=== PATIENT | female | born 1985 | race Caucasian/White ===

== ENCOUNTER 2017-08-31 11:19 | Emergency (ER) | payer MEDICAID, OTHER ==
[~2017-08-31] VITALS: Ht 154.9 cm; Wt 83.9 kg
[~2017-08-31 11:19] MED LIST: CEPH500C16 PO; PREN1CAP3 PO
[2017-08-31 11:32] VITALS: BP 109/72
--- NOTE | 2017-08-31 11:52 | NUR ---
32/F BIB SELF C/O EPIGASTRIC PAIN SINCE YESTERDAY; DENIES N/V/D; WORSE WITH EATING. SKIN IS PINK/WARM/DRY; AAOX4 WITH EVEN AND STEADY GAIT; LUNGS CLEAR BL; HR EVEN AND REGULAR; PT DENIES ANY FEVER, CP, SOB, OR COUGH AT THIS TIME; PATIENT STATES PAIN OF 9/10 AT THIS TIME.
--- NOTE | 2017-08-31 12:11 | NUR ---
Patient being evaluated by DR JOHNSON at bedside.
[2017-08-31] MEDS: FAMOTIDINE 20 MG TAB PO ONE (12:37)
[2017-08-31] MEDS: ALUMINUM HYD/MAG/SIMETHICONE 30 ML UDC PO ONE (12:37)
--- NOTE | 2017-08-31 13:04 | NUR ---
Patient discharged with v/s stable. Written and verbal after care instructions given and explained. Patient alert, oriented and verbalized understanding of instructions. Ambulatory with steady gait. All questions addressed prior to discharge. ID band removed. Patient advised to follow up with PMD. Rx of ZOFRAN & PEPCID given. Patient educated on indication of medication including possible reaction and side effects. Opportunity to ask questions provided and answered.
[2017-08-31 13:14] VITALS: BP 101/72
== END 2017-08-31 13:04 | disposition home or self-care (01) ==
LOC: MED 11:19
DX: K29.70 Gastritis, unspecified, without bleeding (principal); Z90.49 Acquired absence of other specified parts of digestive tract
CPT/HCPCS: 81002; 81025; 99283

== ENCOUNTER 2022-05-08 02:23 | Emergency (ER) | payer SELFPAY ==
[~2022-05-08] VITALS: Ht 154.9 cm; Wt 86.2 kg
[2022-05-08 02:31] VITALS: BP 121/80
[2022-05-08 02:43] VITALS: BP 121/80
--- NOTE | 2022-05-08 02:43 | NUR ---
Dr. Evans examining patient.
[2022-05-08] MEDS ORDERED: diphenhydrAMINE 50 MG/ML VIAL IVP ONE (03:00)
[2022-05-08] MEDS ORDERED: methylPREDNISolone SS 125 MG/2 ML VIAL IVP ONE (03:00)
[2022-05-08] MEDS ORDERED: FAMOTIDINE 20 MG/2 ML VIAL IVP ONE (03:00)
[2022-05-08] MEDS ORDERED: FAMOTIDINE 20 MG TAB PO ONE (03:05)
[2022-05-08] MEDS ORDERED: methylPREDNISolone SS 125 MG/2 ML VIAL IM ONE (03:05)
[2022-05-08] MEDS ORDERED: diphenhydrAMINE 50 MG/ML VIAL IM ONE (03:05)
[2022-05-08] MEDS ORDERED: EPIN1KIT32 IM (03:06)
[2022-05-08] MEDS ORDERED: FAMO-92 PO (03:06)
[2022-05-08] MEDS ORDERED: DIPH25TA53 PO (03:06)
[2022-05-08] MEDS ORDERED: PRED20TA5 PO (03:06)
--- NOTE | 2022-05-08 03:11 | NUR ---
22G IV CATH PLACED IN R AC
[2022-05-08 04:30] LABS: BASOPHILS # (AUTO) 0.1 K/uL (0.00-0.22); BASOPHILS % (AUTO) 0.6 % (0.0-2.0); EOSINOPHILS # (AUTO) 0.1 K/uL (0-0.4); EOSINOPHILS % (AUTO) 1.2 % (0.0-4.0); HEMOGLOBIN 11.9 g/dL (12.0-16.0); LYMPHOCYTES # (AUTO) 2.1 K/uL (2.5-16.5); LYMPHOCYTES % (AUTO) 23.1 % (20.5-51.1); MEAN CORPUSCULAR HEMOGLOBIN 28 pg (27-31); MEAN CORPUSCULAR HGB CONC 33 g/dL (33-37); MEAN CORPUSCULAR VOLUME 85.6 fL (80-94); MONOCYTES # (AUTO) 0.6 K/uL (0.8-1.0); MONOCYTES % (AUTO) 6.3 % (1.7-9.3); NEUTROPHILS # (AUTO) 6.2 K/uL (1.8-7.7); NEUTROPHILS % (AUTO) 68.8 % (42.2-75.2); PLATELET COUNT (AUTO) 234 K/uL (140-450); RED CELL DISTRIBUTION WIDTH 13.6 % (11.6-13.7)
--- NOTE | 2022-05-08 04:37 | NUR ---
LABS COLLECTED AND SENT
[2022-05-08 04:48] LABS: ALBUMIN 3.3 g/dL (3.4-5.0); ANION GAP 13.5 (8-16); CARBON DIOXIDE 23.8 mmol/L (21-32); CREATININE 0.8 mg/dL (0.6-1.3); POTASSIUM 4.3 mmol/L (3.5-5.1); TOTAL BILIRUBIN 0.3 mg/dL (0.0-1.0)
[2022-05-08] MEDS ORDERED: cefTRIAXone 1,000 MG VIAL ONE (05:39)
--- NOTE | 2022-05-08 06:08 | NUR ---
Patient discharged with v/s stable. Written and verbal after care instructions given and explained. Patient verbalized understanding. Ambulatory with steady gait. All questions addressed prior to discharge. Advised to follow up with PMD.
--- NOTE | 2022-05-08 06:09 | NUR ---
The patient's care was reviewed and supervised by Naomi Morales RN.
== END 2022-05-08 06:08 | disposition home or self-care (01) ==
LOC: MED 02:23
DX: R21 Rash and other nonspecific skin eruption (principal)
CPT/HCPCS: 36415; 80053; 81025; 85025; 96365; 96375; 99284; J0696; J1200; J2930; J3490